=== PATIENT | female | born 1950 | race Caucasian/White ===

== ENCOUNTER 2023-11-05 21:20 | Emergency (ER) | payer OTHER, SELFPAY ==
[2023-11-05 21:23] VITALS: BP 185/77
[2023-11-05 21:48] VITALS: BP 167/88
--- NOTE | 2023-11-05 21:54 | ED.GENMED ---
History of Present Illness
General
Chief Complaint: Weakness
Source: patient and spouse
Exam Limitations: none
Time Seen by Provider: 11/05/23 21:44
Nursing documentation reviewed up to this point in time: agreed with
Travel History
Have you had any contact with someone who has COVID-19?: No
Do you have any symptoms of coronavirus? Fever > 100 degrees, chills, cough, shortness of breath, sore throat, loss of taste or smell, muscle aches, or headache?: No
History of Present Illness
History of Present Illness:
Patient to ED for eval of swelling to right cheek. No fever/chlls. Spouse reports decreased appetite although drinking normally.
Past History
Past History
ED Past Medical History: Cancer (Breast CA), COPD, CVA, GERD, HTN, Hypercholesterolemia, Valvular disease, Other (early dementia, UTI, Colitis, IBS, Renal calculus) and Other (Gout, UTI)
ED Past Surgical History: Appendectomy, Cardiac (Aortic valve replaced), Cholecystectomy and Other (lumpectomy right X 2, Mastectomy left, Bile ducts dilated)
Patient has exhibited threatening behavior?: No
PSI?: No
Social History
Tobacco: Former smoker
Alcohol: Occasional
Drug: None
Personal:
Living: with family
Employment: Not employed
Review of Systems
Review of Systems
All Other Systems: ROS reviewed and negative except as documented in HPI and ROS
Constitutional: Reports no symptoms
EENT: Reports other (pain along right upper gingiva over lateral incisor)
Respiratory: Reports no symptoms
Cardiac: Reports no symptoms
ABD/GI: Reports other (decreased appetite)
Musculoskeletal: Reports no symptoms
Skin: Reports no symptoms
Neurological: Reports no symptoms
Psychiatric: Reports no symptoms
Phy Exam
General Physical Exam
General Presentation: well appearing and no apparent distress
General age: appears stated age
General Skin: warm and dry
General Habitus: normal
General Mental: alert
General Hydration: appears well hydrated
ENT Exam
ENT Exam: EOMI, pharynx normal, neck supple, normocephalic and other (pain to right upper gingiva along incisor. No abscess noted along gingiva. Mild swelling to cheek. No trismus)
Cardiovascular Exam
Cardiovascular Exam: regular rate/rhythm and no edema
Pulmonary Exam
Pulmonary Exam: lungs clear and no respiratory distress
Gastrointestinal Exam
Gastrointestinal Exam: normal bowel sounds, non tender and soft
Musculoskeletal Exam
Musculoskeletal Exam: full ROM and neuro vasc intact
Skin Exam
Skin Exam: normal color, warm/dry and no rash
Psychiatric Exam
Psychiatric Exam: normal mood/affect
Course
Orders/Labs/Results
Orders:
Orders
11/05/23 21:54
CR Chest - 2 Views Urgent
Comment:
Reason For Exam: fall
11/05/23 22:05
Complete Blood Count/With Diff Urgent
11/05/23 23:09
Comprehensive Metabolic Panel Urgent
Comment: REDRAW
11/05/23 23:48
Clindamycin HCl [Cleocin] 300 mg PO NOW STA
Abnormal Lab Results
11/05/23 11/05/23
22:05 23:09
Hct 36.7 L %
(37.0-47.0)
Absolute Monos (auto) 1.0 H 10^3/uL
(0.1-0.6)
Monocytes % 12.7 H %
(1.7-9.3)
Eosinophils % 7.9 H %
(0-6)
BUN 23 H mg/dl
(7-17)
Creatinine 1.6 H mg/dL
(0.6-1.0)
Total Protein 6.1 L g/dl
(6.3-8.2)
11/05/23 22:05
11/05/23 23:09
Vital Signs
Initial and Last Documented VS:
Initial Vital Signs
Temp Pulse Resp BP Pulse Ox
97.9 F 84 16 185/77 96
11/05/23 21:23 11/05/23 21:23 11/05/23 21:23 11/05/23 21:23 11/05/23 21:23
Last Documented Vital Signs
Temp Pulse Resp BP Pulse Ox
97.9 F 84 16 155/86 96
11/05/23 21:23 11/05/23 21:23 11/05/23 21:23 11/06/23 00:04 11/05/23 22:42
*Critical Care Note
Total Time (30-74mins, 75-104mins- exclusive of procedures): Not Applicable
Update Note
Update Note:
Mild swelling to right cheek with pain along right upper gingiva. Suspect dental abscess. Placed on clindamycin and will discharge home. SPouse will follow up with dentist next week.
ED Attending Note
-
Portions of this chart may have been created with voice recognition software.� Occasional wrong word or��sound alike� substitutions may have occurred due to the inherent limitations of voice recognition software.
Discharge Plan
Departure
Patient Disposition: Home (Routine Discharge)
Date of Disposition: 11/05/23
Time of Disposition: 23:49
Patient with high blood pressure during this ER visit?: No
Condition: Good
Covid-19: Not Applicable
Discharge Problem:
Abscess, dental
Instructions: Tooth Abscess ED
Prescriptions:
New
clindamycin HCl 300 mg capsule
300 mg PO TID Qty: 20 0RF
No Action
folic acid 1 MG tablet
1 mg PO DAILY
allopurinol 300 mg Tablet
300 mg PO DAILY
potassium chloride 20 mEq Tablet Extended Release
20 meq PO DAILY
donepezil 10 mg Tablet
10 mg PO DAILY
sodium bicarbonate
650 mg PO DAILY
Patient Comments:
says it is 10 grains
atorvastatin 40 mg Tablet
40 mg PO QPM 30 Days Qty: 30 0RF
pantoprazole 40 mg Tablet,Delayed Release (Dr/Ec)
40 mg PO DAILY 30 Days Qty: 30 0RF
clopidogrel 75 mg Tablet
75 mg PO DAILY 30 Days Qty: 30 0RF
aspirin 81 mg Tablet,Delayed Release (Dr/Ec)
81 mg PO DAILY 14 Days Qty: 14 0RF
amlodipine 5 mg tablet
5 mg PO DAILY Qty: 30 0RF
Referrals:
Rodrigo Neil MD [Family Provider] -
Activity Restrictions/Additional Instructions:
Follow up with your dentist on Wednesday.
Interventions
Interventions:
*Risk Screen - Suicide Last Done: 11/05/23 21:23
*General Assessment Last Done: 11/05/23 21:23
*Neglect/Abuse Screening Last Done: 11/05/23 21:23
*ED COVID-19 Vaccine History Last Done: 11/06/23 00:10
*Nursing Disposition Last Done: 11/06/23 00:26
ED- Cardiac Assessment Last Done: 11/06/23 00:10
ED- Neurological Assessment Last Done: 11/05/23 21:49
ED- Pulmonary Assessment Last Done: 11/05/23 21:50
Discharge Date and Time
Discharge Date/Time: 11/06/23 00:27
Print Language: BELARUSIAN
[2023-11-05 22:11] LABS: % Basophils 1.8 % (0-2); % Eosinophils 7.9 % (0-6); % Immature Granulocytes 0.4 % (0-0.5); % Lymphocytes 21.6 % (20.5-51.1); % Monocytes 12.7 % (1.7-9.3); % Neutrophils 55.6 % (42.2-75.2); Absolute Basophils 0.1 10^3/uL (0-0.2); Absolute Eosinophils 0.6 10^3/uL (0-0.7); Absolute Lymphocytes 1.7 10^3/uL (1.2-3.4); Absolute Neutrophils 4.3 10^3/uL (1.4-6.5); Hematocrit 36.7 % (37.0-47.0); Hemoglobin 12.6 g/dL (12.0-16.0); Mean Corp Hgb Conc. 34.3 g/dL (33.0-37.0); Mean Corpuscular Hgb 28.6 pg (27.0-31.0); Mean Corpuscular Volume 83.2 fL (81.0-99.0); Mean Platelet Volume 8.7 fL (7.4-10.4); Nucleated Red Blood Cells % 0 %; Platelet Count 152 10^3/uL (130-400); Red Blood Cell Count 4.41 10^6/uL (4.20-5.40); Red Cell Dist. Width 12.6 % (11.5-14.5); White Blood Cell Count 7.7 10^3/uL (4.8-10.8)
[2023-11-05 23:33] LABS: ALT (SGPT) 27 U/L (0-35); AST (SGOT) 31 U/L (14-36); Albumin 3.7 g/dl (3.5-5.0); Alkaline Phosphatase 116 U/L (38-126); Blood Urea Nitrogen 23 mg/dl (7-17); Calcium 9.4 mg/dl (8.4-10.2); Carbon Dioxide 24 mmol/L (22-30); Chloride 105 mmol/L (98-107); Glucose 89 mg/dl (70-99); Potassium 4.3 mmol/L (3.5-5.1); Sodium 137 mmol/L (135-145); Total Bilirubin 0.5 mg/dl (0.2-1.3); Total Protein 6.1 g/dl (6.3-8.2); eGFR 33.42
[2023-11-06] MEDS: CLEOCIN 300 MG PO (00:02)
[2023-11-06 00:04] VITALS: BP 155/86
== END 2023-11-06 00:27 | disposition home or self-care (01) ==
LOC: EMR 21:20
PROVIDERS: Nurse Practitioner; EMERGENCY PHYSICIAN Emergency Medicine; FAMILY PHYSICIAN Family Medicine
DX: K04.7 Periapical abscess without sinus (principal); I10 Essential (primary) hypertension; E78.00 Pure hypercholesterolemia, unspecified; K21.9 Gastro-esophageal reflux disease without esophagitis; I38 Endocarditis, valve unspecified; F03.90 Unspecified dementia, unspecified severity, without behavioral disturbance, psychotic disturbance, mood disturbance, and anxiety; K52.9 Noninfective gastroenteritis and colitis, unspecified; K58.9 Irritable bowel syndrome, unspecified; M10.9 Gout, unspecified; J44.9 Chronic obstructive pulmonary disease, unspecified; Z79.82 Long term (current) use of aspirin; Z95.2 Presence of prosthetic heart valve; Z87.442 Personal history of urinary calculi; Z87.440 Personal history of urinary (tract) infections; Z85.3 Personal history of malignant neoplasm of breast; Z86.73 Personal history of transient ischemic attack (TIA), and cerebral infarction without residual deficits; Z87.891 Personal history of nicotine dependence; Z90.49 Acquired absence of other specified parts of digestive tract; Z90.12 Acquired absence of left breast and nipple; Z88.1 Allergy status to other antibiotic agents; Z88.2 Allergy status to sulfonamides; Z88.8 Allergy status to other drugs, medicaments and biological substances
CPT/HCPCS: 99283; 71046; 80053; 85025

== ENCOUNTER 2023-11-16 17:12 | Observation (INO) | payer OTHER, SELFPAY ==
[2023-11-16] VITALS (11 sets, daily range): BP systolic 110–195; BP diastolic 59–130
--- NOTE | 2023-11-16 12:32 | ED.GENMED ---
History of Present Illness
<Jes Hunt PA-C - Last Filed: 11/16/23 17:29>
General
Chief Complaint: Rectal Bleeding
Source: patient
Exam Limitations: none
Time Seen by Provider: 11/16/23 12:24
Nursing documentation reviewed up to this point in time: agreed with
History of Present Illness
History of Present Illness:
73-year-old female with history of dementia, COPD, hypertension, hyperlipidemia presenting to emergency department due to weakness. Patient is a poor historian and unable to contribute much to history. Patient's was initially at bedside
and states that over the past few days patient has had very dark stools, almost tar-like. She has not been eating and drinking much over the past few days in addition�today patient was significantly weak and unable to walk independently. He
brought her to the emergency department via EMS for further evaluation.
Patient's denies any recent fever, chills, or vomiting. Patient was recently treated for dental infection with amoxicillin for which she had did have to stop early due to diarrhea.
Patient herself denies any acute complaints and does not know why she is here. No chest pain or shortness of breath.
Past History
<Jes Hunt PA-C - Last Filed: 11/16/23 17:29>
Past History
ED Past Medical History: Cancer (Breast CA), COPD, CVA, GERD, HTN, Hypercholesterolemia, Valvular disease, Other (early dementia, UTI, Colitis, IBS, Renal calculus) and Other (Gout, UTI)
ED Past Surgical History: Appendectomy, Cardiac (Aortic valve replaced), Cholecystectomy and Other (lumpectomy right X 2, Mastectomy left, Bile ducts dilated)
Patient has exhibited threatening behavior?: No
PSI?: No
Social History
Tobacco: Former smoker
Alcohol: Occasional
Drug: None
Personal:
Living: with family
Employment: Not employed
Review of Systems
<Jes Hunt PA-C - Last Filed: 11/16/23 17:29>
Review of Systems
Allergies reviewed?: Yes
All Other Systems: ROS reviewed and negative except as documented in HPI and ROS
Phy Exam
<Jes Hunt PA-C - Last Filed: 11/16/23 17:29>
Physical Exam
Physical Exam:
Vitals: Patient's vital signs are stable. Afebrile.
General: Patient is frail appearing, no acute distress. Nontoxic appearing
Skin: Warm and dry, no rashes or lesions
Head: Normocephalic, atraumatic
Eyes: Sclera nonicteric. EOMs intact. No nystagmus.
Throat: Protecting airway
Neck: Normal ROM, no cervical spine tenderness, no meningismus. Trachea midline. No JVD.
Cardiac: Regular rate and rhythm, no murmurs.
Pulm: Normal respiratory effort, no wheezes, rales, rhonchi heard on exam.
Abdomen: Abdomen soft. No abdominal tenderness.
Rectal: Dark brown stool in vault. Guiaic negative.
Extremities: No evidence of cyanosis or edema. Weakness of bilateral lower extremities. Great distal pulses.
Neuro: AAOx2 to person and place, not time. No focal neurologic deficits. Unable to complete full neuro exam due to dementia
Psychiatric: Normal affect.
Course
<Jes Hunt PA-C - Last Filed: 11/16/23 17:29>
Orders/Labs/Results
Orders:
Orders
11/16/23 12:49
Complete Blood Count/With Diff Urgent
11/16/23 13:16
Electrocardiogram (*1) Urgent
Reason for Study: Fatigue / Weakness
EKG- Treatment ONCE
11/16/23 13:17
CR Chest - 2 Views Urgent
Comment:
Reason For Exam: Weakness
11/16/23 13:41
COVID-19 Antigen Urgent
Source: Nasal Swab
11/16/23 14:06
Comprehensive Metabolic Panel Urgent
Blood Culture Q30M
MARCELINO Source: Blood/Venous
Specimen Description:
Blood Culture Q30M
MARCELINO Source: Blood/Venous
Specimen Description:
11/16/23 14:32
Urinalysis Reflex To Culture Urgent
Date Specimen was Collected: 11/16/23
Time Specimen was Collected: 14:26
Urine Microscopic Reflex Cult Urgent
11/16/23 15:11
0.9% Sodium Chloride 500 ml [Nss] 500 ml IV BOLUS
11/16/23 16:26
CefTRIAXone [Rocephin] 1,000 mg IV NOW STA
11/16/23 16:40
Sterile Water [Sterile Water For Injection] 10 ml .ROUTE .[facility]
11/16/23 16:56
Doxycycline Hyclate [Vibramycin] 100 mg 0.9% Sodium Chloride 250 ml [Nss] 250 ml IV NOW
11/16/23 17:03
Admit/Transfer Patient As Directed
Co-Sign Provider:
Level of Care: Observation services
Assign to:: Medical/Surgical
Physician / Group: roberta
Diagnosis: pnuemonia
11/16/23 17:04
Code Status As Directed
Resuscitation Status: Full Code
Abnormal Lab Results
11/16/23 11/16/23 11/16/23
12:49 14:06 14:32
WBC 13.6 H 10^3/uL
(4.8-10.8)
Abs Immat Gran (auto) 0.1 H 10^3/uL
(0-0.05)
Absolute Neuts (auto) 10.6 H 10^3/uL
(1.4-6.5)
Absolute Lymphs (auto) 1.1 L 10^3/uL
(1.2-3.4)
Absolute Monos (auto) 1.1 H 10^3/uL
(0.1-0.6)
Immature Gran % 0.6 H %
(0-0.5)
Neutrophils % 78.1 H %
(42.2-75.2)
Lymphocytes % 7.9 L %
(20.5-51.1)
Carbon Dioxide 19 L mmol/L
(22-30)
BUN 26 H mg/dl
(7-17)
Creatinine 1.3 H mg/dL
(0.6-1.0)
Glucose 110 H mg/dl
(70-99)
Urine Albumin (Reflex) 1+ A
(Neg - Trace)
11/16/23 12:49
11/16/23 14:06
Vital Signs
Initial and Last Documented VS:
Initial Vital Signs
Temp Pulse Resp BP Pulse Ox
97.7 F 95 20 183/86 98
11/16/23 11:09 11/16/23 11:09 11/16/23 11:09 11/16/23 11:09 11/16/23 11:09
Last Documented Vital Signs
Temp Pulse Resp BP Pulse Ox
97.7 F 55 21 184/69 99
11/16/23 11:09 11/16/23 16:45 11/16/23 16:45 11/16/23 16:45 11/16/23 16:45
<Jeremias Blanc MD - Last Filed: 11/16/23 13:56>
Orders/Labs/Results
Orders:
Orders
11/16/23 12:49
Complete Blood Count/With Diff Urgent
11/16/23 13:16
Electrocardiogram (*1) Urgent
Reason for Study: Fatigue / Weakness
EKG- Treatment ONCE
11/16/23 13:17
CR Chest - 2 Views Urgent
Comment:
Reason For Exam: Weakness
11/16/23 13:41
COVID-19 Antigen Urgent
Source: Nasal Swab
11/16/23 14:06
Comprehensive Metabolic Panel Urgent
Blood Culture Q30M
MARCELINO Source: Blood/Venous
Specimen Description:
Blood Culture Q30M
MARCELINO Source: Blood/Venous
Specimen Description:
11/16/23 14:32
Urinalysis Reflex To Culture Urgent
Date Specimen was Collected: 11/16/23
Time Specimen was Collected: 14:26
Urine Microscopic Reflex Cult Urgent
11/16/23 15:11
0.9% Sodium Chloride 500 ml [Nss] 500 ml IV BOLUS
11/16/23 16:26
CefTRIAXone [Rocephin] 1,000 mg IV NOW STA
11/16/23 16:40
Sterile Water [Sterile Water For Injection] 10 ml .ROUTE .[facility]
11/16/23 16:56
Doxycycline Hyclate [Vibramycin] 100 mg 0.9% Sodium Chloride 250 ml [Nss] 250 ml IV NOW
11/16/23 17:03
Admit/Transfer Patient As Directed
Co-Sign Provider:
Level of Care: Observation services
Assign to:: Medical/Surgical
Physician / Group: roberta
Diagnosis: pnuemonia
11/16/23 17:04
Code Status As Directed
Resuscitation Status: Full Code
Abnormal Lab Results
11/16/23 11/16/23 11/16/23
12:49 14:06 14:32
WBC 13.6 H 10^3/uL
(4.8-10.8)
Abs Immat Gran (auto) 0.1 H 10^3/uL
(0-0.05)
Absolute Neuts (auto) 10.6 H 10^3/uL
(1.4-6.5)
Absolute Lymphs (auto) 1.1 L 10^3/uL
(1.2-3.4)
Absolute Monos (auto) 1.1 H 10^3/uL
(0.1-0.6)
Immature Gran % 0.6 H %
(0-0.5)
Neutrophils % 78.1 H %
(42.2-75.2)
Lymphocytes % 7.9 L %
(20.5-51.1)
Carbon Dioxide 19 L mmol/L
(22-30)
BUN 26 H mg/dl
(7-17)
Creatinine 1.3 H mg/dL
(0.6-1.0)
Glucose 110 H mg/dl
(70-99)
Urine Albumin (Reflex) 1+ A
(Neg - Trace)
11/16/23 12:49
11/16/23 14:06
Vital Signs
Initial and Last Documented VS:
Initial Vital Signs
Temp Pulse Resp BP Pulse Ox
97.7 F 95 20 183/86 98
11/16/23 11:09 11/16/23 11:09 11/16/23 11:09 11/16/23 11:09 11/16/23 11:09
Last Documented Vital Signs
Temp Pulse Resp BP Pulse Ox
97.7 F 55 21 184/69 99
11/16/23 11:09 11/16/23 16:45 11/16/23 16:45 11/16/23 16:45 11/16/23 16:45
<Jes Hunt PA-C - Last Filed: 11/16/23 17:29>
MDM/Problems Addressed
Differential Diagnosis Includes:
Not limtied to: Anemia, UTI, cardiac arrythmia, viral illness, dehydration, sepsis
MDM/Problems Addressed:
73-year-old female with history dementia brought in by with nondescript weakness worse today. Patient unable to contribute much to history due to dementia. Patient hypertensive, otherwise vital signs stable. She is frail, although
nontoxic-appearing. Physical exam as above. She does have generalized weakness equal in bilateral lower extremities. Great distal pulses. Heart regular rate and rhythm. Lungs clear bilaterally. Abdomen soft. There was some report of black
tarry schools by history although rectal exam shows guaiac negative stool. No history of trauma or evidence of trauma noted on exam. Will check labs, urine. Will check COVID, chest x-ray, send blood cultures given significant weakness. Patient
comfortable with no acute complaints. Will monitor closely. Do anticipate admission given significant weakness
Labs reviewed. Leukocytosis of 13.6 with mild left shift. Hemoglobin of 15.5 which appears increased from prior�in conjunction with negative guaiac stool do not suspect GI bleed at this time. She does appear to have some renal insufficiency not
much change from baseline. Will give 500 cc fluids urine shows no signs of infection. EKG shows normal sinus rhythm with a mildly prolonged QT but unchanged. Checks x-ray does show a very mild area at right lower base questionable for pneumonia
versus subsegmental atelectasis. Clinically low suspicion for pneumonia given no cough and patient is afebrile with clear lungs. Although given significant weakness and leukocytosis�will start patient on IV antibiotics and admit to hospitalist for
further management. Started IV Rocephin and IV Doxy�will avoid azithromycin at this time due to prolonged QT. Did consider patient's listed allergy amoxicillin although it is a side effect of medication not a true allergy. Will proceed with IV
Rocephin. Discussed with hospitalist. Patient will be admitted.
Chronic conditions affecting care:
Dementia, COPD
Acute Exacerbation and/or Progression of Chronic Illness:
N/A
<Jes Hunt PA-C - Last Filed: 11/16/23 17:29>
*Radiology
Radiology exam reviewed: preliminary read by ED provider and radiology read reviewed
*Pulse Oximetry
Patient hypoxic: no
*EKG
Interpreted by ED Provider?: Yes
EKG Intrepretation Date: 11/16/23
Interpretation: normal
Heart Rate: 62
Rate: normal
Rhythm: sinus
Interval: long QT
Ischemia: non-specific ST changes
*Clinic Office Manager Interpretation
Rate: normal
Interpretation: normal
Heart Rate: 66
Rhythm: sinus
*Critical Care Note
Total Time (30-74mins, 75-104mins- exclusive of procedures): Not Applicable
Data Reviewed
Prescriptions/Medications Considered But Not Given:
Azithromycin�given prolonged QT will avoid for now
<Jes Hunt PA-C - Last Filed: 11/16/23 17:29>
Patient Management
Discussion with other providers: Hospitalist
Escalation/DeEscalation of care consider admission/obs:
Admit for IV antibiotics and further evaluation
ED Attending Note
<Jes Hunt PA-C - Last Filed: 11/16/23 17:29>
-
Portions of this chart may have been created with voice recognition software.� Occasional wrong word or��sound alike� substitutions may have occurred due to the inherent limitations of voice recognition software.
<Jeremias Blanc MD - Last Filed: 11/16/23 13:56>
ED Attending Note
Patient seen and examined by attending physician: Yes
I performed the substantive portion of visit, reviewed & personally made and approve the management plan that is documented in note by myself or HUMAIRA.: Yes
ED Attending Note:
Patient does not know why she is here. Apparently presents with general weakness. There is also some concern of dark stools. General weakness progressive over a week
On exam patient is elderly and frail. Nontoxic in no distress. Oriented x 1. Normocephalic atraumatic. Lungs are clear and equal. Heart regular rate and rhythm. Abdomen nontender. Warm and dry. She is generally weak and generally weak to
lift both legs. However nonfocal.
Impression is general weakness gait issues. Dementia. Hemoglobin is stable. White count elevated. Awaiting urine chest x-ray.
Discharge Plan
Departure
Patient Disposition: Admit
Date of Disposition: 11/16/23
Time of Disposition: 16:22
Presentation/result/management discussed w/ accepting MD/DO: Hospitalist
Discharge Problem:
Weakness, Community acquired pneumonia
Interventions
Interventions:
*Risk Screen - Suicide Last Done: 11/16/23 11:09
*General Assessment Last Done: 11/16/23 11:09
*Neglect/Abuse Screening Last Done: 11/16/23 11:09
*ED COVID-19 Vaccine History Last Done: 11/16/23 12:12
TP-Mhyczj-Slchnkzggp Assessment Last Done: 11/16/23 12:12
ED- Cardiac Assessment Last Done: 11/16/23 12:12
ED- Pulmonary Assessment Last Done: 11/16/23 12:12
[2023-11-16 13:10] LABS: % Basophils 1.3 % (0-2); % Eosinophils 4.1 % (0-6); % Immature Granulocytes 0.6 % (0-0.5); % Lymphocytes 7.9 % (20.5-51.1); % Neutrophils 78.1 % (42.2-75.2); Absolute Basophils 0.2 10^3/uL (0-0.2); Absolute Eosinophils 0.6 10^3/uL (0-0.7); Absolute Immature Granulocytes 0.1 10^3/uL (0-0.05); Absolute Lymphocytes 1.1 10^3/uL (1.2-3.4); Absolute Monocytes 1.1 10^3/uL (0.1-0.6); Absolute Neutrophils 10.6 10^3/uL (1.4-6.5); Hematocrit 43.9 % (37.0-47.0); Hemoglobin 15.5 g/dL (12.0-16.0); Mean Corp Hgb Conc. 35.3 g/dL (33.0-37.0); Mean Corpuscular Hgb 28.9 pg (27.0-31.0); Mean Corpuscular Volume 81.8 fL (81.0-99.0); Mean Platelet Volume 9.4 fL (7.4-10.4); Nucleated Red Blood Cells % 0 %; Platelet Count 214 10^3/uL (130-400); Red Blood Cell Count 5.37 10^6/uL (4.20-5.40); White Blood Cell Count 13.6 10^3/uL (4.8-10.8)
[2023-11-16 14:40] LABS: ALT (SGPT) 18 U/L (0-35); AST (SGOT) 28 U/L (14-36); Albumin 4.4 g/dl (3.5-5.0); Alkaline Phosphatase 125 U/L (38-126); Blood Urea Nitrogen 26 mg/dl (7-17); Carbon Dioxide 19 mmol/L (22-30); Chloride 107 mmol/L (98-107); Glucose 110 mg/dl (70-99); Potassium 3.7 mmol/L (3.5-5.1); Sodium 137 mmol/L (135-145); Total Bilirubin 0.8 mg/dl (0.2-1.3); Total Protein 6.9 g/dl (6.3-8.2); eGFR 42.88
[2023-11-16 14:41] LABS: Urine Albumin 1+ (Neg - Trace); Urine Bilirubin Negative (Negative); Urine Character Clear (Clear); Urine Color Yellow; Urine Glucose Negative (Negative); Urine Ketone Negative (Negative); Urine Leukocyte Negative (Negative); Urine Nitrite Negative (Negative); Urine Occult Blood Negative (Negative); Urine Urobilinogen Negative (Neg - 1+)
[2023-11-16 15:33] LABS: Urine Red Blood Cell 0-2 /HPF (0-2); Urine White Cell 0-2 /HPF (0-5)
[2023-11-16] MEDS: NSS 500 IV (15:35)
--- NOTE | 2023-11-16 17:06 | HPS.HSE ---
Family Physician
-
Family Physician: Rodrigo Neil
Chief Complaint
-
weakness
History of Present Illness
73-year-old female past medical history of COPD, left MCA stroke, aortic stenosis status post TAVR, hypertension, normocytic anemia, breast cancer, gout, Alzheimer's dementia, GERD, chronic kidney disease presenting with weakness.
Patient states that she has been having weakness for the past several months. She states that today she felt really hot and felt that she must of had a fever although she did not check. She has been having some slight cough but denies shortness of
breath or chest pain.
She also reports that she has been having ongoing chronic diarrhea denies any diarrhea today. She also reports that her stools have been black for the past several weeks although she admits to taking Pepto-Bismol for her diarrhea. She does
complain of abdominal pain sometimes. She did feel nauseous but denies any vomiting.
She states that she does smoke a few cigarettes a day. She denies alcohol use.
Medical History
Past Medical History
Past Medical History: Reports Other ( COPD, left MCA stroke, aortic stenosis status post TAVR, hypertension, normocytic anemia, breast cancer, gout, Alzheimer's dementia, GERD, chronic kidney disease)
Past Surgical History: Reports None
Social History
Tobacco: Smoker
Alcohol: None
Drug: None
Family History
Family History: Not pertinent
Allergies / Home Medications
Allergies reflects when Allergies were last updated in [facility].
Home Medications with original date entered in [facility]
Allergy/Medication List:
Allergies
Allergy/AdvReac Type Severity Reaction Status Date / Time
amoxicillin Allergy Nausea Verified 11/16/23 11:13
rivastigmine Allergy Rash Verified 11/16/23 11:13
Sulfa (Sulfonamide Allergy Nausea Verified 11/16/23 11:13
Antibiotics)
Home Medications
folic acid 1 mg tablet 1 mg PO DAILY Supplement 02/03/22
allopurinol 300 mg tablet 300 mg PO DAILY Gout 03/30/22
potassium chloride 20 mEq tablet,extended release 20 meq PO DAILY Electrolyte Repletion 03/30/22
donepezil 10 mg tablet 10 mg PO QPM dementia 05/22/23
sodium bicarbonate 650 mg tablet 650 mg PO BID Electrolyte Repletion ##0 05/22/23
atorvastatin 40 mg tablet 40 mg PO QPM 30 days #30 tabs 05/29/23
pantoprazole 40 mg tablet,delayed release 40 mg PO DAILY 30 days #30 tabs 05/29/23
aspirin 81 mg tablet,delayed release 81 mg PO Q48H Heart Disease/Condition 11/16/23
furosemide 20 mg tablet (Lasix) 20 mg PO DAILYPRN PRN fluid 11/16/23
Review of Systems
-
History Source: Patient
A 12 point ROS was completed and negative except as noted: Yes
Constitutional: Reports No Symptoms
EENT: Reports No Symptoms
Respiratory: Reports See HPI
Cardiac: Reports No Symptoms
Abdomen/GI: Reports See HPI
: Reports No Symptoms
Musculoskeletal: Reports No Symptoms
Skin: Reports No Symptoms
Neurological: Reports No Symptoms
Endocrine: Reports No Symptoms
Hematologic/Lymphatic: Reports No Symptoms
Psych: Reports No Symptoms
Physical Exam
Vital Signs
Vital Signs
Temp Pulse Resp BP Pulse Ox
97.7 F 55 21 184/69 99
11/16/23 11:09 11/16/23 16:45 11/16/23 16:45 11/16/23 16:45 11/16/23 16:45
Physical Exam
General: Well Developed, Well Nourished and No Apparent Distress
HEENT: NormoCephalic, Moist mucous membranes and Atraumatic
Respiratory: Clear
Cardiac: S1/S2 and Regular Rhythm; No Murmur or Rub
GI: Soft, Non Distended, Normal Bowel Sounds and Tender; No Organomegaly
Rectal: Deferred by Provider
Musculoskeletal: No Clubbing, No Cyanosis and No Edema
Skin: No Rash
Neuro: Nonfocal/grossly intact
Laboratory Results
-
11/16/23 12:49
11/16/23 14:06
Laboratory Results
Total Bilirubin 0.8 mg/dl (0.2-1.3) 11/16/23 14:06
AST 28 U/L (14-36) 11/16/23 14:06
ALT 18 U/L (0-35) 11/16/23 14:06
Alkaline Phosphatase 125 U/L (38-126) 11/16/23 14:06
Data Reviewed
-
Lab Data: Labs Reviewed by me
Old Records: Reviewed
Impression/Plan
-
IMPRESSION:
PLAN:
# Right lower lobe pneumonia
-Chest x-ray shows vague streaky opacity right lung base which is new
-Leukocytosis
-COVID pending
-Blood cultures pending
-IV fluids given, hold further
-Ceftriaxone/doxycycline
# Black stools likely secondary to Pepto-Bismol
-Hemoccult negative
-Hemoglobin stable at 15
-No diarrhea currently
-Outpatient follow-up with GI for diarrhea/dark stools if recurrent problem
# Chronic diarrhea unclear etiology
-No diarrhea currently
# Hypertensive urgency
-Blood pressure in 180s
-Does not appear to be on antihypertensive therapy
-As needed hydralazine
Chronic kidney disease
-Renal function at baseline
-Continue sodium bicarbonate
COPD
History of left MCA stroke
-Continue aspirin, statin
Aortic stenosis status post TAVR
Moderate eccentric aortic regurgitation
Essential hypertension
Normocytic anemia
-Hemoglobin currently normal
Breast cancer
Gout
-Continue allopurinol
Alzheimer's dementia
-Continue donepezil
GERD
-Continue Protonix
Smoker
Full code
DVT prophylaxis�heparin
Regular diet
[2023-11-16] MEDS: ROCEPHIN 1000 MG IV (17:15)
[2023-11-16] MEDS: VIBRAMYCIN 260 MG IV (17:15)
--- NOTE | 2023-11-16 18:15 | PTCARENOTE ---
11/15- Patient transferred and oriented to unit. AAOX2; Pleasantly confused, patient displays inappropriate laughter throughout conversation and is a poor historian. Admissions Assessment completed with minimal information from patient- most
information from ER paperwork. 95% on RA; Bed Alarm placed.
[2023-11-16] MEDS: ASPIR LOW (ENTERIC COATED) PO (18:40)
[2023-11-16] MEDS: NORVASC PO (18:41)
[2023-11-16 18:50] LABS: COVID-19 Antigen Negative (Negative)
--- NOTE | 2023-11-16 18:53 | PTCARENOTE ---
11/15- Patient has many 1800 medications including BP and ABX. Medications have yet to be verified and available in [facility]. Called Pharmacy for med availability though it is Change of Shift. Advised they are getting it ready. Meds still not
available at this time. Advised next shift RN.
[2023-11-16] MEDS: VIBRAMYCIN IV (19:01)
[2023-11-16] MEDS: HEPARIN 5000 UNITS SC (19:56)
[2023-11-16] MEDS: SODIUM BICARBONATE 650 MG PO (19:57)
[2023-11-16 20:00] LABS: Procalcitonin < 0.05 ng/ml (0.0-0.25)
--- NOTE | 2023-11-16 21:30 | PTCARENOTE ---
report received. pt aaox1. pt forgetful w/ confused conversation. vss. bed alarm placed. call reyna in reach. will monitor.
[2023-11-17] MEDS: VIBRAMYCIN 260 MG IV (05:54)
[2023-11-17 06:00] VITALS: BMI 19.1
[2023-11-17 06:16] LABS: % Eosinophils 2.9 % (0-6); % Immature Granulocytes 0.3 % (0-0.5); % Monocytes 8.5 % (1.7-9.3); % Neutrophils 79.3 % (42.2-75.2); Absolute Basophils 0.1 10^3/uL (0-0.2); Absolute Eosinophils 0.4 10^3/uL (0-0.7); Absolute Neutrophils 9.7 10^3/uL (1.4-6.5); Hemoglobin 12.7 g/dL (12.0-16.0); Mean Corp Hgb Conc. 34.3 g/dL (33.0-37.0); Mean Corpuscular Hgb 28.5 pg (27.0-31.0); Mean Corpuscular Volume 83.1 fL (81.0-99.0); Mean Platelet Volume 9.2 fL (7.4-10.4); Nucleated Red Blood Cells % 0 %; Platelet Count 191 10^3/uL (130-400); Red Blood Cell Count 4.45 10^6/uL (4.20-5.40); Red Cell Dist. Width 12.9 % (11.5-14.5); White Blood Cell Count 12.2 10^3/uL (4.8-10.8)
[2023-11-17 07:43] LABS: ALT (SGPT) 18 U/L (0-35); AST (SGOT) 28 U/L (14-36); Albumin 4.1 g/dl (3.5-5.0); Alkaline Phosphatase 121 U/L (38-126); Blood Urea Nitrogen 23 mg/dl (7-17); Calcium 9.4 mg/dl (8.4-10.2); Carbon Dioxide 21 mmol/L (22-30); Chloride 109 mmol/L (98-107); Estimated Creatinine Clearance 26 ml/min; Glucose 88 mg/dl (70-99); Potassium 4.1 mmol/L (3.5-5.1); Sodium 139 mmol/L (135-145); Total Bilirubin 0.9 mg/dl (0.2-1.3); Total Protein 6.5 g/dl (6.3-8.2); eGFR 47.21
[2023-11-17 07:51] VITALS: BP 147/61
--- NOTE | 2023-11-17 08:00 | W.PN.HOSP.TC ---
Addendum entered and electronically signed by Rakesh Reynolds MD 11/17/23 12:57:
Total time spent on d/c = 31 min. This included today's physical exam, progress note, review of laboratory and diagnostic data, preparation of discharge documents and prescriptions, and discussions about the pt's hospital course and discharge plan
with the patient and other medical payment poster involved in the patient's care.
Original Note:
Today's Communication/Plan
-
d/c
Assessment / Plan
Assessment / Plan
Gen: NAD, Awake and alert, appears chronically ill malnourished
Eyes: EOMI, PERRLA, no scleral icterus.
Neck: supple.
CV: RRR, +S1/S2, no m/r/g.
Resp: CTAB, no rales, wheezes, or rhonchi.
Abd: +BS, soft, NT, ND
Skin: No rashes.
Neuro: CN 2-12 intact, non-focal.
Psych: Normal mood and affect.
CXR:
1. Vague streaky opacity at the right lung base, new compared to prior chest x-ray, which may represent subsegmental atelectasis or pneumonia.
2. Unchanged hyperinflation, suggestive of COPD in the correct clinical setting.
Right lower lobe pneumonia vs atelectasis:
-Chest x-ray above
-Leukocytosis improving
-COVID NEG
-procal NEG therefore bacterial PNA very unlikely, stop abx, CXR findings likely atelectasis
-IV fluids given in ER, hold further
# Black stools likely secondary to Pepto-Bismol
-Hemoccult negative
-Hemoglobin stable
-No diarrhea currently
-Outpatient follow-up with GI for diarrhea/dark stools if recurrent problem
# Chronic diarrhea unclear etiology
-No diarrhea currently
# Hypertensive urgency
-Blood pressure in 180s
-Does not appear to be on antihypertensive therapy
-Norvasc started
-As needed hydralazine
Chronic kidney disease
-Renal function at baseline
-Continue sodium bicarbonate
COPD
History of left MCA stroke
-Continue aspirin, statin
Aortic stenosis status post TAVR
Moderate eccentric aortic regurgitation
Essential hypertension
Normocytic anemia
-Hemoglobin currently normal
Breast cancer
Gout
-Continue allopurinol
Alzheimer's dementia
-Continue donepezil
GERD
-Continue Protonix
Tobacco abuse disorder
FULL/Heparin
Medically cleared for discharge. Case management aware.
Anticipated Discharge: Today
Subjective/Interval History
-
Date of Service: November 17, 2023
No new complaints.
Objective Data
-
Labs:
Laboratory Results
11/17/23 11/17/23
05:55 07:16
WBC 12.2 H
Hgb 12.7
Hct 37.0
Plt Count 191
Sodium Cancelled 139
Potassium Cancelled 4.1
Chloride Cancelled 109 H
Carbon Dioxide Cancelled 21 L
BUN Cancelled 23 H
Creatinine Cancelled 1.2 H
Glucose Cancelled 88
Calcium Cancelled 9.4
Total Bilirubin Cancelled 0.9
AST Cancelled 28
ALT Cancelled 18
Alkaline Phosphatase Cancelled 121
Vital Signs:
Vital Signs
Temp Pulse Resp BP Pulse Ox
98.5 F 67 16 147/61 97
11/17/23 07:51 11/17/23 07:51 11/17/23 07:51 11/17/23 07:51 11/17/23 07:51
I&O
11/16/23 11/17/23 11/18/23
06:59 06:59 06:59
Intake Total 260 / 260
Balance 260 / 260
[2023-11-17] MEDS: ASPIR LOW (ENTERIC COATED) 81 MG PO (08:17)
[2023-11-17] MEDS: ZYLOPRIM 300 MG PO (08:17)
[2023-11-17] MEDS: SODIUM BICARBONATE 650 MG PO (08:17)
[2023-11-17] MEDS: FOLVITE 1 MG PO (08:17)
[2023-11-17] MEDS: PROTONIX 40 MG PO (08:17)
[2023-11-17] MEDS: NORVASC 10 MG PO (08:17)
[2023-11-17] MEDS: HEPARIN 5000 UNITS SC (08:18)
--- NOTE | 2023-11-17 11:20 | CM ---
Addendum entered by Radha Day 11/17/23 14:54:
Referral sent to [facility] for home care needs
Plan - home with Zi ORELLANATong
Fax - [phone]
Original Note:
Met with pt and her at bedside
Pt lives in a 2 story home, 2 steps to enter, with FF set-up
Pt has dementia - assists with adl's pt ambulates with rolling walker, does replenishment merchandising associate
DME - rolling walker, wheel chair, elevated toilet seat
SNF - [facility] in past
HH - [facility] in past - prefers if needed at d/c
Has ride home with
PCP - Dr Rodrigo Neil
Pharm - [facility]
PT/OT to evaluate
CM will follow for needs
Plan - anticipate home with HH
== END 2023-11-17 14:46 | disposition home health service (06) ==
LOC: 3 WEST ACU 17:12
PROVIDERS: Emergency Medicine; Physician Assistant; ADMITTING PHYSICIAN Hospitalist; ATTENDING PHYSICIAN Internal Medicine; EMERGENCY PHYSICIAN Emergency Medicine; FAMILY PHYSICIAN Family Medicine
DX: J18.9 Pneumonia, unspecified organism (principal); J44.0 Chronic obstructive pulmonary disease with (acute) lower respiratory infection; R53.83 Other fatigue; R94.31 Abnormal electrocardiogram [ECG] [EKG]; M10.9 Gout, unspecified; R53.1 Weakness; R11.0 Nausea; R19.7 Diarrhea, unspecified; R19.5 Other fecal abnormalities; E78.5 Hyperlipidemia, unspecified; G30.9 Alzheimer's disease, unspecified; F02.80 Dementia in other diseases classified elsewhere, unspecified severity, without behavioral disturbance, psychotic disturbance, mood disturbance, and anxiety; I12.9 Hypertensive chronic kidney disease with stage 1 through stage 4 chronic kidney disease, or unspecified chronic kidney disease; N18.9 Chronic kidney disease, unspecified; D64.9 Anemia, unspecified; R10.9 Unspecified abdominal pain; F17.210 Nicotine dependence, cigarettes, uncomplicated; I10 Essential (primary) hypertension; E78.00 Pure hypercholesterolemia, unspecified; K21.9 Gastro-esophageal reflux disease without esophagitis; I16.0 Hypertensive urgency; E46 Unspecified protein-calorie malnutrition; Z90.12 Acquired absence of left breast and nipple; Z90.49 Acquired absence of other specified parts of digestive tract; Z95.2 Presence of prosthetic heart valve; Z87.440 Personal history of urinary (tract) infections; Z87.442 Personal history of urinary calculi; Z86.73 Personal history of transient ischemic attack (TIA), and cerebral infarction without residual deficits; Z85.3 Personal history of malignant neoplasm of breast; Z11.52 Encounter for screening for COVID-19; Z88.0 Allergy status to penicillin; Z88.2 Allergy status to sulfonamides; Z79.82 Long term (current) use of aspirin; Z88.1 Allergy status to other antibiotic agents; Z68.1 Body mass index [BMI] 19.9 or less, adult
CPT/HCPCS: 71046; 80053; 81003; 81015; 84145; 85025; 87040; 87811; 93005; 96361; 99285; G0378

== ENCOUNTER 2024-02-02 11:55 | Emergency (ER) | payer OTHER, SELFPAY ==
[2024-02-02 11:56] VITALS: BP 194/114
--- NOTE | 2024-02-02 12:14 | ED.GENMED ---
History of Present Illness
General
Chief Complaint: Weakness
Source: patient and spouse
Exam Limitations: dementia
Time Seen by Provider: 02/02/24 12:08
Nursing documentation reviewed up to this point in time: agreed with
History of Present Illness
History of Present Illness:
73-year-old female w h/o dementia, AVR, TIA, COPD, HTN, UTI, GERD, arrives with her from home. She has a history of dementia and is a poor historian. He brings her as he is concerned she lost 10 lbs, not eating well, does drink 'fine.' He
is concerned that she is dehydrated. He denies n/v/d/c. She had a fall at home 3 days ago, he helped her up and she has had no indication of injury, has been ambulating as usual.
Past History
Past History
ED Past Medical History: Cancer (Breast CA), COPD, CVA, GERD, HTN, Hypercholesterolemia, Valvular disease, Other (early dementia, UTI, Colitis, IBS, Renal calculus) and Other (Gout, UTI)
ED Past Surgical History: Appendectomy, Cardiac (Aortic valve replaced), Cholecystectomy and Other (lumpectomy right X 2, Mastectomy left, Bile ducts dilated)
Patient has exhibited threatening behavior?: No
PSI?: No
Social History
Tobacco: Former smoker
Alcohol: Occasional
Drug: None
Personal:
Living: with family
Employment: Not employed
Review of Systems
Review of Systems
Allergies reviewed?: Yes
All Other Systems: ROS reviewed and negative except as documented in HPI and ROS
Constitutional: Denies fever or fatigue
Respiratory: Denies trouble breathing
Cardiac: Denies chest pain or syncope
ABD/GI: Reports anorexia; Denies abdominal pain, nausea, vomiting, diarrhea or constipated
: Denies dysuria, frequency or difficulty voiding
Musculoskeletal: Reports no symptoms
Skin: Reports no symptoms
Neurological: Denies weakness
Phy Exam
Physical Exam
Physical Exam:
GENERAL: No acute distress. Alert, smiling, not oriented. Elderly and frail
CONSTITUTIONAL: Afebrile.
EYES: clear, conjunctivae normal
ENMT: moist mucus membranes, Pharynx nl
RESPIRATORY: Regular respirations, nonlabored, lungs clear.
CARDIOVASCULAR: Regular rate and rhythm, no murmurs, no rubs.
GI: Soft, nontender, normal BS
MUSCULOSKELETAL: Moves with ease. Well perfused. No edema
SKIN: Warm, dry, pink
PSYCH: Normal mood and affect. Well kept. Demented
NEUROLOGIC: Awake, alert. No focal neurological deficits
Course
Orders/Labs/Results
Orders:
Orders
02/02/24 12:13
Straight cath- Treatment ONCE
02/02/24 12:14
0.9% Sodium Chloride 500 ml [Nss] 500 ml IV BOLUS
02/02/24 12:51
Comprehensive Metabolic Panel Urgent
Urinalysis Reflex To Culture Urgent
Date Specimen was Collected: 02/02/24
Time Specimen was Collected: 12:46
Urine Microscopic Reflex Cult Urgent
02/02/24 13:42
Complete Blood Count/With Diff Urgent
Abnormal Lab Results
02/02/24 02/02/24
12:51 13:42
Abs Immat Gran (auto) 0.1 H 10^3/uL
(0-0.05)
Absolute Monos (auto) 1.0 H 10^3/uL
(0.1-0.6)
Immature Gran % 0.7 H %
(0-0.5)
Lymphocytes % 16.0 L %
(20.5-51.1)
Monocytes % 12.0 H %
(1.7-9.3)
Eosinophils % 8.4 H %
(0-6)
BUN 24 H mg/dl
(7-17)
Creatinine 1.6 H mg/dL
(0.6-1.0)
Glucose 111 H mg/dl
(70-99)
Ur Occult Blood Reflex Trace A
(Negative)
Urine RBC 40-50 A /HPF
(0-2)
Urine Bacteria (Reflex) Few A
(Negative)
Urine Albumin (Reflex) 2+ A
(Neg - Trace)
02/02/24 13:42
02/02/24 12:51
Vital Signs
Initial and Last Documented VS:
Initial Vital Signs
Temp Pulse Resp BP Pulse Ox
98.2 F 91 20 194/114 95
02/02/24 11:56 02/02/24 11:56 02/02/24 11:56 02/02/24 11:56 02/02/24 11:56
Last Documented Vital Signs
Temp Pulse Resp BP Pulse Ox
98.2 F 84 17 199/98 97
02/02/24 11:56 02/02/24 13:45 02/02/24 13:45 02/02/24 13:00 02/02/24 13:45
MDM/Problems Addressed
Differential Diagnosis Includes:
dehydration, malnutrition, advancing dementia
MDM/Problems Addressed:
73-year-old female w h/o dementia, AVR, TIA, COPD, HTN, UTI, GERD, arrives with her from home. She has a history of dementia and is a poor historian. He brings her as he is concerned she lost 10 lbs, not eating well, does drink 'fine.' He
is concerned that she is dehydrated. He denies n/v/d/c. She had a fall at home 3 days ago, he helped her up and she has had no indication of injury, has been ambulating as usual.
1:42 p.m.
CBC: No clinically significant abnormality
CMP: BUN/Creat mildly higher than her baseline CKD, IV fluids ordered for mild dehydration
U/A: no infection. 40-50 RBCs >30 squamous cells, few bacteria, no indication for further testing
Pt is elderly female w dementia, afebrile, alert, smiling, non toxic appearing
W/U here shows mild dehydration, chronic CKD
reassured no UTI, no significant malnutrition per normal Albumin and Total Protein
Plan: Encourage fluids, follow up in 2 weeks with PCP for repeat labs/kidney function
Case discussed with Dr. Geller who agrees with assessment and plan
Chronic conditions affecting care: Psychiatric illness (dementia)
*Critical Care Note
Total Time (30-74mins, 75-104mins- exclusive of procedures): Not Applicable
ED Attending Note
-
Portions of this chart may have been created with voice recognition software.� Occasional wrong word or��sound alike� substitutions may have occurred due to the inherent limitations of voice recognition software.
Discharge Plan
Departure
Patient Disposition: Home (Routine Discharge)
Date of Disposition: 02/02/24
Time of Disposition: 14:28
Patient with high blood pressure during this ER visit?: Yes
Condition: Good
Discharge Problem:
Mild dehydration, BP (high blood pressure)
Instructions: Dehydration, Adult ED, BLOOD PRESSURE
Prescriptions:
No Action
folic acid 1 MG tablet
1 mg PO DAILY
allopurinol 300 mg Tablet
300 mg PO DAILY
potassium chloride 20 mEq Tablet Extended Release
20 meq PO DAILY
donepezil 10 mg Tablet
10 mg PO QPM
sodium bicarbonate 650 mg Tablet
650 mg PO BID Qty: 0
Patient Comments:
says it is 10 grains
atorvastatin 40 mg Tablet
40 mg PO QPM 30 Days Qty: 30 0RF
pantoprazole 40 mg Tablet,Delayed Release (Dr/Ec)
40 mg PO DAILY 30 Days Qty: 30 0RF
furosemide [Lasix] 20 mg Tablet
20 mg PO DAILYPRN PRN (Reason: fluid)
aspirin 81 mg tablet,delayed release (DR/EC)
81 mg PO Q48H
amlodipine 10 mg Tablet
10 mg PO DAILY Qty: 30 0RF
Referrals:
Rodrigo Neil MD [Family Provider] - Call in 1-3 days for appt
Activity Restrictions/Additional Instructions:
As we discussed, nothing worrisome in Mercedes's workup here today.
Since you state Mercedes's blood pressure is always high only when she comes to the hospital, check her blood pressure once or twice a day under calm circumstances and record it for the next week and discuss with Dr. Neil
Follow-up with Dr. Neil in 7 to 10 days for blood pressure check and repeat blood work to check kidney function.
Interventions
Interventions:
*Risk Screen - Suicide Last Done: 02/02/24 11:56
*General Assessment Last Done: 02/02/24 12:49
*Neglect/Abuse Screening Last Done: 02/02/24 12:49
*ED COVID-19 Vaccine History Last Done: 02/02/24 12:49
*Nursing Disposition Last Done: 02/02/24 15:13
ED- Cardiac Assessment Last Done: 02/02/24 12:49
ED- Neurological Assessment Last Done: 02/02/24 12:49
ED- Pulmonary Assessment Last Done: 02/02/24 12:49
Discharge Date and Time
Discharge Date/Time: 02/02/24 15:14
Print Language: NEPALI
[2024-02-02] MEDS: NSS 500 IV (12:23)
[2024-02-02 12:49] VITALS: BP 198/83
[2024-02-02 13:00] VITALS: BP 199/98
[2024-02-02 13:09] LABS: Urine Albumin 2+ (Neg - Trace); Urine Bilirubin Negative (Negative); Urine Character Clear (Clear); Urine Color Yellow; Urine Glucose Negative (Negative); Urine Ketone Negative (Negative); Urine Leukocyte Negative (Negative); Urine Nitrite Negative (Negative); Urine Occult Blood Trace (Negative); Urine Specific Gravity 1.015 (<1.030); Urine Urobilinogen Negative (Neg - 1+)
[2024-02-02 13:18] LABS: ALT (SGPT) 17 U/L (0-35); AST (SGOT) 28 U/L (14-36); Albumin 4.6 g/dl (3.5-5.0); Alkaline Phosphatase 115 U/L (38-126); Blood Urea Nitrogen 24 mg/dl (7-17); Calcium 10.1 mg/dl (8.4-10.2); Carbon Dioxide 25 mmol/L (22-30); Chloride 99 mmol/L (98-107); Glucose 111 mg/dl (70-99); Potassium 4.7 mmol/L (3.5-5.1); Sodium 137 mmol/L (135-145); Total Bilirubin 0.9 mg/dl (0.2-1.3); eGFR 33.42
[2024-02-02 13:52] LABS: Urine Squamous Cell >30 /LPF (Few)
[2024-02-02 13:53] LABS: Urine Red Blood Cell 40-50 /HPF (0-2)
[2024-02-02 13:54] LABS: Urine Bacteria Few (Negative)
[2024-02-02 14:01] LABS: % Basophils 1.7 % (0-2); % Eosinophils 8.4 % (0-6); % Immature Granulocytes 0.7 % (0-0.5); % Neutrophils 61.2 % (42.2-75.2); Absolute Basophils 0.2 10^3/uL (0-0.2); Absolute Eosinophils 0.7 10^3/uL (0-0.7); Absolute Immature Granulocytes 0.1 10^3/uL (0-0.05); Absolute Lymphocytes 1.4 10^3/uL (1.2-3.4); Absolute Neutrophils 5.3 10^3/uL (1.4-6.5); Hematocrit 39.3 % (37.0-47.0); Hemoglobin 13.6 g/dL (12.0-16.0); Mean Corp Hgb Conc. 34.6 g/dL (33.0-37.0); Mean Corpuscular Hgb 29.2 pg (27.0-31.0); Mean Corpuscular Volume 84.5 fL (81.0-99.0); Mean Platelet Volume 9.3 fL (7.4-10.4); Nucleated Red Blood Cells % 0 %; Platelet Count 191 10^3/uL (130-400); Red Blood Cell Count 4.65 10^6/uL (4.20-5.40); Red Cell Dist. Width 12.9 % (11.5-14.5); White Blood Cell Count 8.6 10^3/uL (4.8-10.8)
== END 2024-02-02 15:14 | disposition home or self-care (01) ==
LOC: EMR 11:55
PROVIDERS: Registered Nurse; EMERGENCY PHYSICIAN Emergency Medicine; FAMILY PHYSICIAN Family Medicine
DX: E86.0 Dehydration (principal); R63.0 Anorexia; R03.0 Elevated blood-pressure reading, without diagnosis of hypertension; F03.90 Unspecified dementia, unspecified severity, without behavioral disturbance, psychotic disturbance, mood disturbance, and anxiety; W19.XXXA Unspecified fall, initial encounter; Y92.009 Unspecified place in unspecified non-institutional (private) residence as the place of occurrence of the external cause; K21.9 Gastro-esophageal reflux disease without esophagitis; K58.9 Irritable bowel syndrome, unspecified; K52.9 Noninfective gastroenteritis and colitis, unspecified; I12.9 Hypertensive chronic kidney disease with stage 1 through stage 4 chronic kidney disease, or unspecified chronic kidney disease; N18.9 Chronic kidney disease, unspecified; E78.00 Pure hypercholesterolemia, unspecified; J44.9 Chronic obstructive pulmonary disease, unspecified; M10.9 Gout, unspecified; M19.90 Unspecified osteoarthritis, unspecified site; M06.9 Rheumatoid arthritis, unspecified; Z95.2 Presence of prosthetic heart valve; Z85.3 Personal history of malignant neoplasm of breast; Z86.73 Personal history of transient ischemic attack (TIA), and cerebral infarction without residual deficits; Z87.891 Personal history of nicotine dependence; Z87.440 Personal history of urinary (tract) infections; Z87.442 Personal history of urinary calculi; Z90.12 Acquired absence of left breast and nipple; Z90.49 Acquired absence of other specified parts of digestive tract; Z88.1 Allergy status to other antibiotic agents; Z88.2 Allergy status to sulfonamides; Z88.8 Allergy status to other drugs, medicaments and biological substances; Z79.82 Long term (current) use of aspirin
CPT/HCPCS: 99284; 96360; 51701; 80053; 81003; 81015; 85025

== ENCOUNTER 2024-02-03 06:43 | Emergency (ER) | payer OTHER, SELFPAY ==
[2024-02-03] VITALS (8 sets, daily range): BP systolic 139–171; BP diastolic 71–102; PULSE 103; O2SAT 96
--- NOTE | 2024-02-03 07:12 | ED.MUSCINJ ---
HPI-Injury
General
Chief Complaint: Fall
Source: patient
Exam Limitations: none
Time Seen by Provider: 02/03/24 06:57
History of Present Illness-Injury
Initial Injury comments:
73-year-old female presents via EMS after fall. She was complaining of tailbone and lower back pain to EMS. She was brought here by EMS for evaluation no reported head strike. She denies headache. She is not anticoagulated. Patient has a
history of dementia and is a poor historian
Past History
Past History
ED Past Medical History: Cancer (Breast CA), COPD, CVA, GERD, HTN, Hypercholesterolemia, Valvular disease, Other (early dementia, UTI, Colitis, IBS, Renal calculus) and Other (Gout, UTI)
ED Past Surgical History: Appendectomy, Cardiac (Aortic valve replaced), Cholecystectomy and Other (lumpectomy right X 2, Mastectomy left, Bile ducts dilated)
Patient has exhibited threatening behavior?: No
PSI?: No
Social History
Tobacco: Former smoker
Alcohol: Occasional
Drug: None
Personal:
Living: with family
Employment: Not employed
Phy Exam
Physical Exam
Physical Exam:
General: Well-appearing female no acute respiratory distress
HEENT: No signs of trauma
Heart: Regular rate and rhythm
Lungs: Clear no wheeze
Abdomen is soft nontender nondistended
Musculoskeletal exam: Mild tenderness over the lower lumbar spine and sacrum no deformities noted to the extremities
Neurologic: Alert oriented to person only no facial asymmetry symmetric muscle tone
Injury Course
Orders/Labs/Results
Orders:
Orders
02/03/24 07:11
CR Lumbar Spine 2 Or 3 Views Urgent
Comment:
Reason For Exam: fall
CR Sacrum/coccyx Min 2 View Urgent
Comment:
Reason For Exam: fall
02/03/24 09:07
Acetaminophen [Tylenol] 650 mg PO NOW STA
PT Consult [Pt Eval And Treat] Urgent
Activity Level: Ambulate
02/03/24 09:08
Case Management Consult ONCE
Case Management Consult: Discharge Planning
MDM/Problems Addressed
Differential Diagnosis Includes:
Fall with lower back and tailbone pain. No signs of head strike. X-rays lumbar spine and sacrum pending.
*Critical Care Note
Total Time (30-74mins, 75-104mins- exclusive of procedures): Not Applicable
Update Note
Update Note:
I personally visualized x-rays of the lumbar spine and sacrum. There is a new superior endplate deformity of L3 to suggest compression fracture as well as a lucency through the sacrum to suggest fracture of the sacrum. is now in the room.
They live at home independently. Typically the patient is ambulatory with a walker however since the fall yesterday she has been unable to bear any weight. He can no longer take care of her at home. Will consult physical therapy for evaluation
and case management for potential placement.
Patient evaluated by physical therapy and case management. She met criteria for rehab placement. Case management able to find a bed at [facility]. She will be sent there for further evaluation. She was given Tylenol for discomfort
ED Attending Note
-
Portions of this chart may have been created with voice recognition software.� Occasional wrong word or��sound alike� substitutions may have occurred due to the inherent limitations of voice recognition software.
Discharge Plan
Departure
Patient Disposition: Acute Rehab Facility
Date of Disposition: 02/03/24
Time of Disposition: 11:11
Patient with high blood pressure during this ER visit?: No
Discharge Problem:
Compression fracture, Closed sacral fracture
Prescriptions:
No Action
folic acid 1 MG tablet
1 mg PO DAILY
allopurinol 300 mg Tablet
300 mg PO DAILY
potassium chloride 20 mEq Tablet Extended Release
20 meq PO DAILY
donepezil 10 mg Tablet
10 mg PO QPM
sodium bicarbonate 650 mg Tablet
650 mg PO BID Qty: 0
Patient Comments:
says it is 10 grains
atorvastatin 40 mg Tablet
40 mg PO QPM 30 Days Qty: 30 0RF
pantoprazole 40 mg Tablet,Delayed Release (Dr/Ec)
40 mg PO DAILY 30 Days Qty: 30 0RF
furosemide [Lasix] 20 mg Tablet
20 mg PO DAILYPRN PRN (Reason: fluid)
aspirin 81 mg tablet,delayed release (DR/EC)
81 mg PO Q48H
amlodipine 10 mg Tablet
10 mg PO DAILY Qty: 30 0RF
Referrals:
Eden Cho MD [Family Provider] -
Interventions
Interventions:
*Risk Screen - Suicide Last Done: 02/03/24 06:45
*General Assessment Last Done: 02/03/24 06:45
*Neglect/Abuse Screening Last Done: 02/03/24 06:45
*ED COVID-19 Vaccine History Last Done: 02/03/24 06:45
ED-Musculoskeletal Assessment Last Done: 02/03/24 06:49
ED- Neurological Assessment Last Done: 02/03/24 06:49
Discharge Date and Time
Print Language: SWISS
[2024-02-03] MEDS: TYLENOL 650 MG PO (09:16)
--- NOTE | 2024-02-03 09:35 | CM ---
Addendum entered by Phoebe Karimi RN 02/03/24 09:56:
Patient has been accepted by [facility]. is agreeable to plan. CM will call for authorization. CM updated ED PA>
Original Note:
CM reviewed medical records. CM noted on previous admissions patient was agreeable to [facility]. CARLA spoke with Vinita at [facility] and she will review preliminary referral.
PT is in room with patient.
--- NOTE | 2024-02-03 10:37 | CM ---
Addendum entered by Phoebe Karimi RN 02/03/24 10:45:
CM updated patient's with plan for discharge to [facility].
Original Note:
[facility] Authorization
[id number]
LCD 02/06
Level 1 Skilled
Acute Care Authorization
[id number]
[facility]
Report
[phone]
== END 2024-02-03 13:00 ==
LOC: EMR 06:43
PROVIDERS: EMERGENCY PHYSICIAN Student in an Organized Health Care Education/Training Program; FAMILY PHYSICIAN Student in an Organized Health Care Education/Training Program
DX: S32.030A Wedge compression fracture of third lumbar vertebra, initial encounter for closed fracture (principal); S32.10XA Unspecified fracture of sacrum, initial encounter for closed fracture; W19.XXXA Unspecified fall, initial encounter; F03.90 Unspecified dementia, unspecified severity, without behavioral disturbance, psychotic disturbance, mood disturbance, and anxiety; E78.00 Pure hypercholesterolemia, unspecified; I10 Essential (primary) hypertension; J44.9 Chronic obstructive pulmonary disease, unspecified; K21.9 Gastro-esophageal reflux disease without esophagitis; Z85.3 Personal history of malignant neoplasm of breast; Z86.73 Personal history of transient ischemic attack (TIA), and cerebral infarction without residual deficits; Z87.891 Personal history of nicotine dependence; Z90.49 Acquired absence of other specified parts of digestive tract; Z95.2 Presence of prosthetic heart valve; Z90.12 Acquired absence of left breast and nipple
CPT/HCPCS: 99283; 72100; 72220

== ENCOUNTER 2024-04-05 06:43 | Emergency (ER) | payer OTHER, SELFPAY ==
[2024-04-05 06:45] VITALS: BP 139/79
--- NOTE | 2024-04-05 07:19 | ED.GENMED ---
History of Present Illness
General
Chief Complaint: Musculo-Skeletal Complaint
Source: spouse
Exam Limitations: none
Time Seen by Provider: 04/05/24 07:06
Nursing documentation reviewed up to this point in time: agreed with
History of Present Illness
History of Present Illness:
73 yr old female w/ hx of dementia was brought to the ED by . reports spouse has dementia and for past about 10 months her left hand has been getting gradually contracted. He does report this is not new but it seems to be getting
worse. Today he was trying to cut her nails and was unable to get her fingers to straighten out to cut her nails. Otherwise has been reports no other issues or complaints.
Past History
Past History
ED Past Medical History: Cancer (Breast CA), COPD, CVA, GERD, HTN, Hypercholesterolemia, Valvular disease, Other (early dementia, UTI, Colitis, IBS, Renal calculus) and Other (Gout, UTI)
ED Past Surgical History: Appendectomy, Cardiac (Aortic valve replaced), Cholecystectomy and Other (lumpectomy right X 2, Mastectomy left, Bile ducts dilated)
Patient has exhibited threatening behavior?: No
PSI?: No
Social History
Tobacco: Former smoker
Alcohol: Occasional
Drug: None
Personal:
Living: with family
Employment: Not employed
Review of Systems
Review of Systems
Allergies reviewed?: Yes
Unable to obtain full review of systems at this time due to: dementia
Other source history: family
All Other Systems: ROS reviewed and negative except as documented in HPI and ROS
Constitutional: Reports no symptoms
Musculoskeletal: Reports other (contractures in right hand getting worse as per ,; unable to straighten her fingers )
Psychiatric: Reports no symptoms
Phy Exam
General Physical Exam
General Presentation: well appearing
General age: appears stated age and appears older than age
General Skin: warm and dry
General Habitus: elderly
General Mental: alert
General Hydration: appears well hydrated
Neurological Exam
Neurological Exam: alert and other ( pleasantly confused follows commands)
Musculoskeletal Exam
Musculoskeletal Exam: other (right hand with contracted 3rd, 4th, and 5th fingers ; + long finger nails but no wounds/ no skin breakdown )
Skin Exam
Skin Exam: normal color and warm/dry
Psychiatric Exam
Psychiatric Exam: normal mood/affect
Course
Orders/Labs/Results
Orders:
Orders
04/05/24 07:43
Occupational Therapy Consult [Ot Eval And Treat] Urgent
Treatment: right hand contracture
Vital Signs
Initial and Last Documented VS:
Initial Vital Signs
Temp Pulse Resp BP Pulse Ox
98.3 F 97 18 139/79 98
04/05/24 06:45 04/05/24 06:45 04/05/24 06:45 04/05/24 06:45 04/05/24 06:45
Last Documented Vital Signs
Temp Pulse Resp BP Pulse Ox
98.3 F 78 16 116/78 98
04/05/24 06:45 04/05/24 09:18 04/05/24 09:18 04/05/24 09:18 04/05/24 09:18
MDM/Problems Addressed
MDM/Problems Addressed:
Patient presented to the ER with concern for contracted third fourth and fifth fingers. Patient has dementia and has been has been caring for her at home and this has been gradually getting worse and he was not able to cut her nails on his own
prompted her to come to the ER today. Nurses were able to gently extend third fourth and fifth fingers and Patient stands is no obvious wound patient was eval by OT here in the ER as a consult however in addition also wrote a prescription for
outpatient OT. Patient was discharged with recommendations to use a rolled towel in order to maintain assist to the opening of the hand.
*Critical Care Note
Total Time (30-74mins, 75-104mins- exclusive of procedures): Not Applicable
ED Attending Note
-
Portions of this chart may have been created with voice recognition software.� Occasional wrong word or��sound alike� substitutions may have occurred due to the inherent limitations of voice recognition software.
Discharge Plan
Departure
Patient Disposition: Home (Routine Discharge)
Date of Disposition: 04/05/24
Time of Disposition: 08:39
Patient with high blood pressure during this ER visit?: Yes
Condition: Fair
Covid-19: Not Applicable
Discharge Problem:
chronic right hand contracture
Prescriptions:
No Action
folic acid 1 MG tablet
1 mg PO DAILY
allopurinol 300 mg Tablet
300 mg PO DAILY
potassium chloride 20 mEq Tablet Extended Release
20 meq PO DAILY
donepezil 10 mg Tablet
10 mg PO QPM
sodium bicarbonate 650 mg Tablet
650 mg PO BID Qty: 0
Patient Comments:
says it is 10 grains
atorvastatin 40 mg Tablet
40 mg PO QPM 30 Days Qty: 30 0RF
pantoprazole 40 mg Tablet,Delayed Release (Dr/Ec)
40 mg PO DAILY 30 Days Qty: 30 0RF
furosemide [Lasix] 20 mg Tablet
20 mg PO DAILYPRN PRN (Reason: fluid)
aspirin 81 mg tablet,delayed release (DR/EC)
81 mg PO Q48H
amlodipine 10 mg Tablet
10 mg PO DAILY Qty: 30 0RF
Referrals:
Rodrigo Neil MD [Family Provider] -
Activity Restrictions/Additional Instructions:
As discussed you were given a prescription for hand therapy for right hand contracture. Try and gently do gentle range of motion as recommended by occupational therapist. Try to wash with soap and water and pat dry ensuring that area is dried
thoroughly to avoid skin breakdown. Follow-up with family doctor in next several days return if any worsening of symptoms
Interventions
Interventions:
*Risk Screen - Suicide Last Done: 04/05/24 06:45
*General Assessment Last Done: 04/05/24 06:45
*Neglect/Abuse Screening Last Done: 04/05/24 06:45
ED- Fall Risk Assessment Last Done: 04/05/24 09:18
*ED COVID-19 Vaccine History Last Done: 04/05/24 06:45
*Nursing Disposition Last Done: 04/05/24 09:18
ED-Musculoskeletal Assessment Last Done: 04/05/24 09:17
Discharge Date and Time
Discharge Date/Time: 04/05/24 09:19
Print Language: GERMAN
--- NOTE | 2024-04-05 08:41 | PTOTSP ---
pt seen in ED for right hand contracture. per spouse, hand has been gradually getting more difficult to keep in anatomical position. recommend rolled towel to maintain and to assist in opening hand. provider to give Rx for hand therapy to consider
splinting.
[2024-04-05 09:18] VITALS: BP 116/78
== END 2024-04-05 09:19 | disposition home or self-care (01) ==
LOC: EMR 06:43
PROVIDERS: EMERGENCY PHYSICIAN Emergency Medicine; FAMILY PHYSICIAN Family Medicine
DX: M24.541 Contracture, right hand (principal); F03.90 Unspecified dementia, unspecified severity, without behavioral disturbance, psychotic disturbance, mood disturbance, and anxiety; E78.00 Pure hypercholesterolemia, unspecified; I10 Essential (primary) hypertension; J44.9 Chronic obstructive pulmonary disease, unspecified; K21.9 Gastro-esophageal reflux disease without esophagitis; Z85.3 Personal history of malignant neoplasm of breast; Z86.73 Personal history of transient ischemic attack (TIA), and cerebral infarction without residual deficits; Z87.891 Personal history of nicotine dependence; Z90.49 Acquired absence of other specified parts of digestive tract; Z90.12 Acquired absence of left breast and nipple; Z95.2 Presence of prosthetic heart valve
CPT/HCPCS: 99282

== ENCOUNTER 2024-04-16 09:09 | Emergency (ER) | payer OTHER, SELFPAY ==
[2024-04-16 09:10] VITALS: BP 134/87
--- NOTE | 2024-04-16 10:20 | ED.GENMED ---
History of Present Illness
General
Chief Complaint: Skin Surface Trauma
Source: spouse
Time Seen by Provider: 04/16/24 10:04
History of Present Illness
History of Present Illness:
73-year-old female presents to the emergency room with her who is her caregiver for evaluation of a skin tear. Patient was in the bathroom with her who was helping her. They lost their balance and stumbled. She struck her right
wrist on the edge of the sink. No other complaints. Patient has severe dementia and is not able to provide any history. 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
Past History
Past History
ED Past Medical History: Cancer (Breast CA), COPD, CVA, GERD, HTN, Hypercholesterolemia, Valvular disease, Other (early dementia, UTI, Colitis, IBS, Renal calculus) and Other (Gout, UTI)
ED Past Surgical History: Appendectomy, Cardiac (Aortic valve replaced), Cholecystectomy and Other (lumpectomy right X 2, Mastectomy left, Bile ducts dilated)
Patient has exhibited threatening behavior?: No
PSI?: No
Social History
Tobacco: Former smoker
Alcohol: Occasional
Drug: None
Personal:
Living: with family
Employment: Not employed
Phy Exam
Physical Exam
Physical Exam:
General: Awake, nonverbal
Vitals: unremarkable
Head: Atraumatic
Eyes: Pupils equal, EOMI
Throat: Airway intact, no exudates
Neck: Trachea midline
Lungs: Clear and equal b/l
Skin: Warm, dry, multiple areas of superficial ecchymosis consistent with age and medical conditions. There is a L-shaped skin tear with a total length of approximately 4 cm located on the dorsal surface right wrist.
Extremities: pulses equal b/l, no edema
Course
Vital Signs
Initial and Last Documented VS:
Initial Vital Signs
Temp Pulse Resp BP Pulse Ox
97.6 F 103 18 134/87 98
04/16/24 09:10 04/16/24 09:10 04/16/24 09:10 04/16/24 09:10 04/16/24 09:10
Last Documented Vital Signs
Temp Pulse Resp BP Pulse Ox
97.6 F 103 18 134/87 98
04/16/24 09:10 04/16/24 09:10 04/16/24 09:10 04/16/24 09:10 04/16/24 09:10
MDM/Problems Addressed
Differential Diagnosis Includes:
Skin tear
MDM/Problems Addressed:
Attempted to approximate the edges of the skin tear. However given the patient's dementia it is difficult to have her be cooperative in order to do so. Skin tear is very superficial and not amenable to suturing. Steri-Strips placed to tack it
down. Wound will otherwise be left to heal by secondary intention. Antibiotic ointment dressing placed
*Pulse Oximetry
Patient hypoxic: no
*Critical Care Note
Total Time (30-74mins, 75-104mins- exclusive of procedures): Not Applicable
ED Attending Note
-
Portions of this chart may have been created with voice recognition software.� Occasional wrong word or��sound alike� substitutions may have occurred due to the inherent limitations of voice recognition software.
Discharge Plan
Departure
Patient Disposition: Home (Routine Discharge)
Date of Disposition: 04/16/24
Time of Disposition: 10:20
Patient with high blood pressure during this ER visit?: No
Condition: Good
Discharge Problem:
Tear of skin of right wrist
Instructions: Wound Care (DC)
Prescriptions:
No Action
folic acid 1 MG tablet
1 mg PO DAILY
allopurinol 300 mg Tablet
300 mg PO DAILY
potassium chloride 20 mEq Tablet Extended Release
20 meq PO DAILY
donepezil 10 mg Tablet
10 mg PO QPM
sodium bicarbonate 650 mg Tablet
650 mg PO BID Qty: 0
Patient Comments:
says it is 10 grains
atorvastatin 40 mg Tablet
40 mg PO QPM 30 Days Qty: 30 0RF
pantoprazole 40 mg Tablet,Delayed Release (Dr/Ec)
40 mg PO DAILY 30 Days Qty: 30 0RF
furosemide [Lasix] 20 mg Tablet
20 mg PO DAILYPRN PRN (Reason: fluid)
aspirin 81 mg tablet,delayed release (DR/EC)
81 mg PO Q48H
amlodipine 10 mg Tablet
10 mg PO DAILY Qty: 30 0RF
Referrals:
Rodrigo Neil MD [Family Provider] -
Activity Restrictions/Additional Instructions:
Change dressing once a day.
Interventions
Interventions:
*Risk Screen - Suicide Last Done: 04/16/24 09:10
*General Assessment Last Done: 04/16/24 09:10
*Neglect/Abuse Screening Last Done: 04/16/24 09:10
ED- Fall Risk Assessment Last Done: 04/16/24 10:52
*ED COVID-19 Vaccine History Last Done: 04/16/24 09:12
*Nursing Disposition Last Done: 04/16/24 10:51
ED-Skin Assessment Last Done: 04/16/24 10:45
Discharge Date and Time
Discharge Date/Time: 04/16/24 10:52
Print Language: GERMAN
== END 2024-04-16 10:52 | disposition home or self-care (01) ==
LOC: EMR 09:09
PROVIDERS: EMERGENCY PHYSICIAN Emergency Medicine; FAMILY PHYSICIAN Family Medicine
DX: S61.511A Laceration without foreign body of right wrist, initial encounter (principal); W22.8XXA Striking against or struck by other objects, initial encounter; J44.9 Chronic obstructive pulmonary disease, unspecified; K21.9 Gastro-esophageal reflux disease without esophagitis; I10 Essential (primary) hypertension; E78.00 Pure hypercholesterolemia, unspecified; I38 Endocarditis, valve unspecified; K58.9 Irritable bowel syndrome, unspecified; F03.C0 Unspecified dementia, severe, without behavioral disturbance, psychotic disturbance, mood disturbance, and anxiety; Z85.3 Personal history of malignant neoplasm of breast; Z86.73 Personal history of transient ischemic attack (TIA), and cerebral infarction without residual deficits; Z87.440 Personal history of urinary (tract) infections; Z87.442 Personal history of urinary calculi; Z87.891 Personal history of nicotine dependence; Z90.12 Acquired absence of left breast and nipple; Z90.49 Acquired absence of other specified parts of digestive tract; Z95.2 Presence of prosthetic heart valve
CPT/HCPCS: 99282

== ENCOUNTER 2024-05-25 12:40 | Emergency (ER) | payer OTHER, SELFPAY ==
[2024-05-25 12:50] VITALS: BP 111/76
[2024-05-25 13:05] VITALS: BP 96/58
[2024-05-25 13:17] LABS: Urine Albumin 1+ (Neg - Trace); Urine Bilirubin Negative (Negative); Urine Character Slightly Cloudy (Clear); Urine Color Yellow; Urine Glucose Negative (Negative); Urine Ketone Negative (Negative); Urine Leukocyte 2+ (Negative); Urine Nitrite Negative (Negative); Urine Occult Blood 2+ (Negative); Urine Urobilinogen Negative (Neg - 1+)
[2024-05-25 14:00] VITALS: BP 114/65
[2024-05-25 14:08] LABS: Urine Squamous Cell 0-2 /LPF (Few)
[2024-05-25 14:09] LABS: Urine White Cell 60-70 /HPF (0-5)
[2024-05-25 14:10] LABS: Urine Bacteria Many (Negative)
--- NOTE | 2024-05-25 14:35 | CM ---
eCdric received call from Sepideh at hospice. She is requesting a referral be placed for Hospice via [facility]. As per Sepideh, plan for discharge today with hospice for tomorrow.
PLAN: hospice
--- NOTE | 2024-05-25 14:38 | ED.GENMED ---
Addendum entered and electronically signed by Richa Butler PA-C 05/29/24 07:22:
urine culture citrobacter
given levaquin, sensitive
no treatment change
Original Note:
History of Present Illness
General
Chief Complaint: Failure to Thrive
Source: family
Exam Limitations: clinical condition and dementia
Time Seen by Provider: 05/25/24 12:42
History of Present Illness
History of Present Illness:
pt s a 73 y/o F
h/o dementia
, AVR 3 years ago
here with decline in mental status x 1.5 weeks
has had pretty severe dementia x 6 mo but now not eating/drinking mucH; Losing a lot of weight
sleeping all day
no cough, fever, falls
has some swollen feet as well
sometimes not taking her meds
he has had a conversation with PCP and is aware that end stage of dementia and would like to take her home today
he was interested in hospice conversatino
Past History
Past History
ED Past Medical History: Cancer (Breast CA), COPD, CVA, GERD, HTN, Hypercholesterolemia, Valvular disease, Other (early dementia, UTI, Colitis, IBS, Renal calculus) and Other (Gout, UTI)
ED Past Surgical History: Appendectomy, Cardiac (Aortic valve replaced), Cholecystectomy and Other (lumpectomy right X 2, Mastectomy left, Bile ducts dilated)
Patient has exhibited threatening behavior?: No
PSI?: No
Social History
Tobacco: Former smoker
Alcohol: Occasional
Drug: None
Personal:
Living: with family
Employment: Not employed
Review of Systems
Review of Systems
Allergies reviewed?: Yes
Unable to obtain full review of systems at this time due to: dementia
Phy Exam
Physical Exam
Physical Exam:
GENERAL: asleep, arousable; doesn't really follow commands
severe dementia
emaciated;
EYE: pupils equal and reactive
NECK: Supple
ENT: o/p clr, dry mouth
CARDIAC: Regular rate and rhythm .pedal edema
LUNGS: Clear breath sounds bilaterally, no acute respiratory distress, no wheezes/rales/rhonchi
ABDOMEN: Soft, without focal tenderness, no r/g, no cvat, normal bowel sounds
NEUROLOGICAL: awake; not following commands; contractures upper arms
SKIN: Warm and dry,
MUSCULOSKELETAL: contractures b/l UE
lower exremiteis edema b/l pedal
PSYCH: Normal and appropriate interaction.
Course
Orders/Labs/Results
Orders:
Orders
05/25/24 13:04
Urinalysis Reflex To Culture Urgent
Date Specimen was Collected: 05/25/24
Time Specimen was Collected: 12:54
Urine Microscopic Reflex Cult Urgent
Urine Culture Urgent
MARCELINO Source: U
Specimen Description:
Date Specimen was Collected: 05/25/24
Time Specimen was Collected: 12:54
05/25/24 14:34
LevoFLOXacin [Levofloxacin Oral Solution] 250 mg PO NOW STA
05/25/24 14:37
Case Management Consult ONCE
Case Management Consult: Hospice
Hospice: Evaluation and treat
Abnormal Lab Results
05/25/24
13:04
Ur Occult Blood Reflex 2+ A
(Negative)
Leukocyte Esterase Rfl 2+ A
(Negative)
Urine RBC 3-6 A /HPF
(0-2)
Urine WBC (Reflex) 60-70 A /HPF
(0-5)
Urine Bacteria (Reflex) Many A
(Negative)
Urine Albumin (Reflex) 1+ A
(Neg - Trace)
05/25/24 12:54
05/25/24 12:54
Vital Signs
Initial and Last Documented VS:
Initial Vital Signs
Temp Pulse Resp BP Pulse Ox
36.6 C 82 14 111/76 97
05/25/24 12:50 05/25/24 12:50 05/25/24 12:50 05/25/24 12:50 05/25/24 12:50
Last Documented Vital Signs
Temp Pulse Resp BP Pulse Ox
36.6 C 82 14 111/76 98
05/25/24 12:50 05/25/24 12:50 05/25/24 12:50 05/25/24 12:50 05/25/24 12:55
MDM/Problems Addressed
Differential Diagnosis Includes:
failure to thrive, uti, infection
MDM/Problems Addressed:
73 y/o F
failure to thrive really in the past 1.5 weeks not really eating/drinking
losing weight
end stage dementia
at bedside, primary historian
would like hospice consult
straight cath before pt's arrived, positive
labs attenpted but unable to obtain and hsuband then politely declined lab studies
i spoke with edwige the consumer insight analyst home improvement contractor who spoke with the at length
He is agreeable to hospice and they are able to enroll her tomorrow. He again declines any lab studies but is ok with oral abx for urine
i reviewed old cultures showing enterococcus which was resistant to ampicillin; nitrofurantoin does not come in solution form
will give levaquin
d/c home
*Critical Care Note
Total Time (30-74mins, 75-104mins- exclusive of procedures): Not Applicable
ED Attending Note
-
Portions of this chart may have been created with voice recognition software.� Occasional wrong word or��sound alike� substitutions may have occurred due to the inherent limitations of voice recognition software.
Discharge Plan
Departure
Patient Disposition: Home (Routine Discharge)
Date of Disposition: 05/25/24
Time of Disposition: 14:42
Patient with high blood pressure during this ER visit?: No
Condition: Fair
Covid-19: Not Applicable
Discharge Problem:
UTI (urinary tract infection), Dementia
Instructions: Urinary Tract Infection, Adult (DC)
Prescriptions:
New
levofloxacin 250 mg/10 mL solution
250 mg PO DAILY 4 Days Qty: 40 0RF
No Action
folic acid 1 MG tablet
1 mg PO DAILY
allopurinol 300 mg Tablet
300 mg PO DAILY
potassium chloride 20 mEq Tablet Extended Release
20 meq PO DAILY
donepezil 10 mg Tablet
10 mg PO QPM
sodium bicarbonate 650 mg Tablet
650 mg PO BID Qty: 0
Patient Comments:
says it is 10 grains
atorvastatin 40 mg Tablet
40 mg PO QPM 30 Days Qty: 30 0RF
pantoprazole 40 mg Tablet,Delayed Release (Dr/Ec)
40 mg PO DAILY 30 Days Qty: 30 0RF
furosemide [Lasix] 20 mg Tablet
20 mg PO DAILYPRN PRN (Reason: fluid)
aspirin 81 mg tablet,delayed release (DR/EC)
81 mg PO Q48H
amlodipine 10 mg Tablet
10 mg PO DAILY Qty: 30 0RF
Referrals:
UNKNOWN - PT NOT,INTERVIEWE [Family Provider] -
Activity Restrictions/Additional Instructions:
YOU OPTED TO INITIATE HOSPICE CONSULT
LARISSA HAS A URINE INFECTION
YOU CAN TRY THE LEVAQUIN ONCE A DAY FOR 5 DAYS STARTING TOMORROW
HOSPICE SHOULD BE REACHING OUT PLANNED
RETURN FOR ANY CONCERNS
Interventions
Interventions:
*Risk Screen - Suicide Last Done: 05/25/24 12:50
*General Assessment Last Done: 05/25/24 12:50
*Neglect/Abuse Screening Last Done: 05/25/24 12:50
*ED COVID-19 Vaccine History Last Done: 05/25/24 12:50
Discharge Date and Time
Print Language: GEORGIAN
--- NOTE | 2024-05-25 14:46 | HOSPNOTE ---
Hospice referral received. Spoke to patients over the phone. Explained hospice and the philosophy and he is in agreement. Plan is for patient to be dc from the ED, will transport home, will sign onto hospice tomorrow per
request. Asked them to discharge her with oral liquid antibiotics for suspected uti as well. Emotional support provided. GONZALO Chaudhry and CM updated.
[2024-05-25 15:00] VITALS: BP 113/59
[2024-05-25] MEDS: LEVOFLOXACIN 250 MG PO (15:32)
== END 2024-05-25 15:49 | disposition home or self-care (01) ==
LOC: EMR 12:40
PROVIDERS: EMERGENCY PHYSICIAN Emergency Medicine
DX: N39.0 Urinary tract infection, site not specified (principal); R64 Cachexia; M79.89 Other specified soft tissue disorders; F03.C0 Unspecified dementia, severe, without behavioral disturbance, psychotic disturbance, mood disturbance, and anxiety; R62.7 Adult failure to thrive; I10 Essential (primary) hypertension; E78.00 Pure hypercholesterolemia, unspecified; J44.9 Chronic obstructive pulmonary disease, unspecified; K21.9 Gastro-esophageal reflux disease without esophagitis; K58.9 Irritable bowel syndrome, unspecified; K52.9 Noninfective gastroenteritis and colitis, unspecified; M10.9 Gout, unspecified; Z95.2 Presence of prosthetic heart valve; Z85.3 Personal history of malignant neoplasm of breast; Z87.442 Personal history of urinary calculi; Z87.891 Personal history of nicotine dependence; Z87.440 Personal history of urinary (tract) infections; Z90.49 Acquired absence of other specified parts of digestive tract; Z90.12 Acquired absence of left breast and nipple; Z88.1 Allergy status to other antibiotic agents; Z88.2 Allergy status to sulfonamides; Z88.8 Allergy status to other drugs, medicaments and biological substances
CPT/HCPCS: 99283; 51701; 81003; 81015; 87077; 87086; 87186